=== PATIENT | male | born 1955 | race Caucasian/White ===

== ENCOUNTER → 2020-10-22 | Outpatient (CLI) | payer MEDICARE, OTHER ==
[2020-10-22 08:55] LABS: HEMOGLOBIN 16.1 gm/dl (14.0-17.5); RED BLOOD COUNT 5.15 M/UL (4.20-5.50); WHITE BLOOD COUNT 5.7 K/UL (4.5-11.0)
[2020-10-22 09:32] LABS: BUN/CREATININE RATIO 28 (0-10)
== END ==
LOC: LAB 08:18
PROVIDERS: Internal Medicine Cardiovascular Disease
DX: I10 Essential (primary) hypertension (principal)
CPT/HCPCS: 36415; 80053; 80061; 83735; 84439; 84443; 85025

== ENCOUNTER → 2020-10-23 | Outpatient (CLI) | payer MEDICARE, OTHER | LOC: HEART 5 07:35 | DX: R00.1 Bradycardia, unspecified (principal); I25.3 Aneurysm of heart; Q67.7 Pectus carinatum; I08.8 Other rheumatic multiple valve diseases; I27.20 Pulmonary hypertension, unspecified; R94.39 Abnormal result of other cardiovascular function study | CPT/HCPCS: 93306 ==